=== PATIENT | male | born 1970 | race Two or more races ===

== ENCOUNTER 2018-02-07 13:22 | Emergency (ER) | payer OTHER ==
[~2018-02-07] VITALS: Ht 177.8 cm; Wt 95.3 kg
== END 2018-02-07 17:03 | disposition home or self-care (01) ==
LOC: ER 13:22
DX: M54.5 Low back pain (principal)

== ENCOUNTER 2021-04-10 04:03 | Emergency (ER) | payer OTHER ==
[~2021-04-10] VITALS: Ht 177.8 cm; Wt 97.5 kg
[~2021-04-10 04:03] MED LIST: CLARITIN10 MG; MULTIVITAMINAS
[2021-04-10] MEDS ORDERED: LOSARTAN-HCTZ1 EACH (05:08)
[2021-04-10] MEDS ORDERED: MEDROLPACK PO (10:15)
[2021-04-10] MEDS ORDERED: NORFLEX100MG PO (10:15)
[2021-04-10] MEDS ORDERED: BACTRIM DS TAB1 EACH PO (10:27)
== END 2021-04-10 10:33 | disposition home or self-care (01) ==
LOC: ER 04:03
DX: M79.672 Pain in left foot (principal); I10 Essential (primary) hypertension